=== PATIENT | female | born 1960 | race Caucasian/White ===

== ENCOUNTER → 2017-03-19 | Outpatient (CLI) | payer OTHER ==
[~2017-03-19] MED LIST: FISH OIL1 CAP PO; MAGNESIUM; VITAMIN C; VITAMIN D; VITAMIN E
--- NOTE | 2017-03-19 15:35 | RADIOLOGY IMAGING REPORT ---
FACILITY: [facility] - [place] PATIENT NAME: DARWIN RUBIO : [id number] MR: [id number] V: [id number] EXAM DATE: [id number] ORDERING PHYSICIAN: SHWETA GOLDMAN TECHNOLOGIST: Magaly Long PROCEDURE:BILATERAL DIGITAL SCREENING MAMMOGRAM WITH CAD ASSISTED INTERPRETATION & 3D TOMOSYNTHESIS COMPARISON:09/15/16 & priors back to 03/12/2013 INDICATIONS:SCREENING FINDINGS: Breasts have scattered fibroglandular parenchymal densities. There are no mammographic findings concerning for malignancy. There is no significant interval change. DIAGNOSTIC CATEGORY 1--NEGATIVE. RECOMMENDATIONS: ROUTINE MAMMOGRAM AND CLINICAL EVALUATION IN 1 YEAR IMPRESSION: BIRADS 1: Negative. Dictated by: Sebastián Menendez on 03/19/2017 at 13:38 Transcribed by: GRACE on 03/19/2017 at 15:13 Approved by: Sebastián Menendez on 03/19/2017 at 15:33 [facility]
== END ==
LOC: MAMO 00:31
PROVIDERS: ATTEND Nurse Practitioner Family
DX: Z12.31 Encounter for screening mammogram for malignant neoplasm of breast (principal)
CPT/HCPCS: 77063; 77067

== ENCOUNTER 2017-09-30 15:05 | Emergency (ER) | payer OTHER ==
--- NOTE | 2017-09-30 15:22 | ER Report ---
History and Physical Time Seen By MD: 15:17 HPI/ROS CHIEF COMPLAINT: LLQ abd pain HISTORY OF PRESENT ILLNESS: PT states that she was fine until 11:15 this morning. PT started with LLQ abdominal pain that was crampy and sharp. + nausea and vomited x2. Pt thought it could be gas so took a fleet enema and had a nl bm but still had pain. no blood in stool or urine. No dysuria. never had this pain before. No back pain. no chills or fever. REVIEW OF SYSTEMS: Constitutional: No fever, no chills. Eyes: No discharge. ENT: No sore throat. Cardiovascular: No chest pain, no palpitations. Respiratory: No cough, no shortness of breath. Gastrointestinal: + abdominal pain, +nausea, + vomiting. Genitourinary: No hematuria. Musculoskeletal: No back pain. Skin: No rashes. Neurological: No headache. Allergies: Coded Allergies: No Known Drug Allergies (Unverified , 04/27/11) Home Meds Reported Medications Insulin Lispro 100 Un/Ml Vial (HUMALOG 100 U/ML VIAL) 100 Unit/1 Ml Vial, 100 UNIT SQ, VIAL 09/30/17 Simvastatin (SIMVASTATIN) 20 Mg Tablet, 20 MG PO HS, TAB 09/30/17 Discontinued Reported Medications [Vitamin E] No Conflict Check 04/27/11 [place]-3 Fatty Acids (Fish Oil) 1 Cap Capsule, 1 CAP PO DAILY 04/27/11 [Magnesium] No Conflict Check 04/27/11 [Vitamin C] No Conflict Check 04/27/11 [Vitamin D] No Conflict Check 04/27/11 Past Medical/Surgical History Pmhx: DM PSHX: , gucci Reviewed Nurses Notes: Yes Old Medical Records Reviewed: Yes Hx Smoking: No Hx Alcohol Use: No Constitutional Vital Sign - Last 24 Hours 09/30/17 15:24 Temp 98.3 Pulse 73 Resp 17 B/P (MAP) 144/84 Pulse Ox 89 O2 Delivery Room Air Physical Exam General Appearance: The patient is alert, has no immediate need for airway protection and no signs of toxicity. Eyes: Pupils equal and round no pallor or injection, EOMI ENT: no pharyngeal erythema or exudates, Mucous membranes are moist Respiratory: There are no retractions, lungs are clear to auscultation. Cardiovascular: Regular rate and rhythm. pulses are equal and symmetrical Gastrointestinal: Abdomen is soft with LLQ tenderness, no masses, bowel sounds decreased, no guarding, no rigidity or rebound Neurological: Cranial nerves II-XII grossly intact, no sensory or motor loss Skin: Warm and dry, no rashes. Musculoskeletal: Neck is supple non tender, no vertebral tenderness Extremities are nontender, non swollen and have full range of motion. DIFFERENTIAL DIAGNOSIS: After history and physical exam differential diagnosis was considered for divertic, colitis, kidney stone, uti, psbo Medical Decision Making Data Points Result Diagram: 09/30/17 1540 09/30/17 1540 Laboratory Hematology Test 09/30/17 15:40 09/30/17 17:12 Red Blood Count 5.00 M/uL (4.17-5.56) Mean Corpuscular Volume 90.0 fL (80.0-96.0) Mean Corpuscular Hemoglobin 32.0 pg (26.0-33.0) Mean Corpuscular Hemoglobin Concent 35.6 g/dL (32.0-36.0) Red Cell Distribution Width 12.9 % (11.5-14.5) Mean Platelet Volume 9.7 fL (7.2-11.1) Neutrophils (%) (Auto) 75.1 % (39.4-72.5) Lymphocytes (%) (Auto) 18.8 % (17.6-49.6) Monocytes (%) (Auto) 5.0 % (4.1-12.4) Eosinophils (%) (Auto) 0.2 % (0.4-6.7) Basophils (%) (Auto) 0.9 % (0.3-1.4) Nucleated RBC Relative Count (auto) 0.1 /100WBC Neutrophils # (Auto) 6.3 K/uL (2.0-7.4) Lymphocytes # (Auto) 1.6 K/uL (1.3-3.6) Monocytes # (Auto) 0.4 K/uL (0.3-1.0) Eosinophils # (Auto) 0.0 K/uL (0.0-0.5) Basophils # (Auto) 0.1 K/uL (0.0-0.1) Nucleated RBC Absolute Count (auto) 0.01 K/uL Sodium Level 137 mmol/L (137-145) Potassium Level 3.4 mmol/L (3.5-5.0) Chloride Level 101 mmol/L (98-107) Carbon Dioxide Level 22 mmol/L (22-31) Blood Urea Nitrogen 18 mg/dl (7-18) Creatinine 0.80 mg/dl (0.52-1.04) Glomerular Filtration Rate Calc > 60.0 Random Glucose 164 mg/dl (75-110) Calcium Level 9.2 mg/dl (8.4-10.2) Total Bilirubin 0.5 mg/dl (0.2-1.3) Aspartate Amino Transf (AST/SGOT) 27 U/L (0-35) Alanine Aminotransferase (ALT/SGPT) 30 U/L (0-56) Alkaline Phosphatase 48 U/L (0-126) Total Protein 7.3 g/dl (6.3-8.2) Albumin 4.2 g/dl (3.5-5.0) Lipase 64 U/L (23-300) Urine Color Yellow Urine Clarity Cloudy Urine pH 8.0 pH (4.8-9.5) Urine Specific [place] 1.035 Urine Protein Negative mg/dL (NEGATIVE) Urine Glucose (UA) 50 mg/dL (NEGATIVE) Urine Ketones 80 mg/dL (NEGATIVE) Urine Blood Negative (NEGATIVE) Urine Nitrite Negative (NEGATIVE) Urine Bilirubin Negative (NEGATIVE) Urine Urobilinogen Negative mg/dL (0.2-1.9) Urine Leukocyte Esterase Negative (NEGATIVE) Urine RBC 2 /HPF (0-2/HPF) Urine WBC None /HPF (0-5/HPF) Urine Squamous Epithelial Cells Many /LPF (</=FEW) Urine Bacteria Moderate /HPF (NONE-FEW) Urine Mucus None /HPF (NONE-FEW) Chemistry Test 09/30/17 15:40 09/30/17 17:12 White Blood Count 8.3 k/uL (4.5-11.0) Red Blood Count 5.00 M/uL (4.17-5.56) Hemoglobin 16.0 g/dL (12.0-16.0) Hematocrit 45.0 % (34.0-47.0) Mean Corpuscular Volume 90.0 fL (80.0-96.0) Mean Corpuscular Hemoglobin 32.0 pg (26.0-33.0) Mean Corpuscular Hemoglobin Concent 35.6 g/dL (32.0-36.0) Red Cell Distribution Width 12.9 % (11.5-14.5) Platelet Count 253 K/uL (150-450) Mean Platelet Volume 9.7 fL (7.2-11.1) Neutrophils (%) (Auto) 75.1 % (39.4-72.5) Lymphocytes (%) (Auto) 18.8 % (17.6-49.6) Monocytes (%) (Auto) 5.0 % (4.1-12.4) Eosinophils (%) (Auto) 0.2 % (0.4-6.7) Basophils (%) (Auto) 0.9 % (0.3-1.4) Nucleated RBC Relative Count (auto) 0.1 /100WBC Neutrophils # (Auto) 6.3 K/uL (2.0-7.4) Lymphocytes # (Auto) 1.6 K/uL (1.3-3.6) Monocytes # (Auto) 0.4 K/uL (0.3-1.0) Eosinophils # (Auto) 0.0 K/uL (0.0-0.5) Basophils # (Auto) 0.1 K/uL (0.0-0.1) Nucleated RBC Absolute Count (auto) 0.01 K/uL Glomerular Filtration Rate Calc > 60.0 Calcium Level 9.2 mg/dl (8.4-10.2) Total Bilirubin 0.5 mg/dl (0.2-1.3) Aspartate Amino Transf (AST/SGOT) 27 U/L (0-35) Alanine Aminotransferase (ALT/SGPT) 30 U/L (0-56) Alkaline Phosphatase 48 U/L (0-126) Total Protein 7.3 g/dl (6.3-8.2) Albumin 4.2 g/dl (3.5-5.0) Lipase 64 U/L (23-300) Urine Color Yellow Urine Clarity Cloudy Urine pH 8.0 pH (4.8-9.5) Urine Specific [place] 1.035 Urine Protein Negative mg/dL (NEGATIVE) Urine Glucose (UA) 50 mg/dL (NEGATIVE) Urine Ketones 80 mg/dL (NEGATIVE) Urine Blood Negative (NEGATIVE) Urine Nitrite Negative (NEGATIVE) Urine Bilirubin Negative (NEGATIVE) Urine Urobilinogen Negative mg/dL (0.2-1.9) Urine Leukocyte Esterase Negative (NEGATIVE) Urine RBC 2 /HPF (0-2/HPF) Urine WBC None /HPF (0-5/HPF) Urine Squamous Epithelial Cells Many /LPF (</=FEW) Urine Bacteria Moderate /HPF (NONE-FEW) Urine Mucus None /HPF (NONE-FEW) Urinalysis Test 09/30/17 17:12 Urine Color Yellow Urine Clarity Cloudy Urine pH 8.0 pH (4.8-9.5) Urine Specific [place] 1.035 Urine Protein Negative mg/dL (NEGATIVE) Urine Glucose (UA) 50 mg/dL (NEGATIVE) Urine Ketones 80 mg/dL (NEGATIVE) Urine Blood Negative (NEGATIVE) Urine Nitrite Negative (NEGATIVE) Urine Bilirubin Negative (NEGATIVE) Urine Urobilinogen Negative mg/dL (0.2-1.9) Urine Leukocyte Esterase Negative (NEGATIVE) Urine RBC 2 /HPF (0-2/HPF) Urine WBC None /HPF (0-5/HPF) Urine Squamous Epithelial Cells Many /LPF (</=FEW) Urine Bacteria Moderate /HPF (NONE-FEW) Urine Mucus None /HPF (NONE-FEW) ED Course/Re-evaluation Clinical Indication for ER IV: IV Access ED Course IV, xray. PT still with pain dispite fentanyl will remedicate and obtain CT 09/30/2017 5:57:[address] Azar, surgery certified nurse practitioner. Reviweed pts CT. Pt currently pain free after two dosages of narcotics. Feels unlikely ischemic colitis due to pts CT was performed with IV contrast and they did not note any wall thickening or signs of ischemia. Feels pt needs close follow up. Spoke with pt and she feels comfortable going home. Will return if symptoms worsen or fever develops. Decision to Disposition Date: Sep 30, 2017 Decision to Disposition Time: 17:54 Depart Departure Latest Vital Signs Vital Signs Date Time Temp Pulse Resp B/P (MAP) Pulse Ox O2 Delivery O2 Flow Rate FiO2 09/30/17 15:24 98.3 73 17 144/84 89 Room Air Impression: Primary Impression: Enteritis Condition: Improved Disposition: HOME OR SELF-CARE Referrals: SHWETA GOLDMANP (PCP) 5 Days New Scripts Ondansetron (ZOFRAN ODT) 4 Mg Tab.rapdis 4 MG PO Q6-8H PRN for NAUSEA/VOMITING, #10 TAB.MIA Prov: MARIE TOBIN DO 09/30/17 Dicyclomine Hcl (DICYCLOMINE HCL) 20 Mg Tablet 20 MG PO Q6-8H PRN for CRAMPING, #21 TAB Prov: MARIE TOBIN DO 09/30/17 Patient Instructions: Enteritis (GEN) Additional Instructions: Your blood work today was stable Your cat scan today showed signs of enteritis which can be viral. Bentyl 20mg every 6-8 hours as needed for cramping. zofran one every 6 hours as needed for nausea. If symptoms worsen (fever, or increased pain) then please return to the emergency department. MARIE TOBIN DO Sep 30, 2017 15:22
[2017-09-30] MEDS ORDERED: fentaNYL CITR 100 MCG/2 ML AMP IVP ONE ×2 (15:30→16:25)
[2017-09-30] MEDS ORDERED: ONDANSETRON 4 MG/2 ML VIAL IVP ONE (15:30)
[2017-09-30 15:58] LABS: PLATELET COUNT, AUTOMATED 253 K/uL (150-450)
[2017-09-30] MEDS ORDERED: NS(*) 0.9% 1000 ML BAG 1,000 ML IV ONE (16:25)
[2017-09-30] MEDS ORDERED: PROMETHAZINE 25 MG/ML 1 ML AMP IVP ONE (16:40)
--- NOTE | 2017-09-30 16:41 | RADIOLOGY IMAGING REPORT ---
FACILITY: [facility] - [place] PATIENT NAME: Ritu Godoy : 1960 MR: [id number] V: [id number] EXAM DATE: ORDERING PHYSICIAN: MARIE TOBIN TECHNOLOGIST: Location: [facility] [place] Patient: Ritu Godoy : 1960 Visit/Account:[id number] Date of Sevice: 09/30/2017 Study: ACUTE ABDOMEN SERIES 3 VIEW Indication: Abdominal pain Comparison study: None available Findings: Upright chest and upright and supine views of the abdomen demonstrates no evidence of pneum operitoneum. There is no evidence of small bowel obstruction. There is a large amount of stool presen t within the colon. The chest is unremarkable in appearance. There is no significant bony abnormality identified. Incidental note is made that the patient is status post cholecystectomy. IMPRESSION: No significant abnormality identified. Specifically, there is no evidence of small bowel obstruction or pneumoperitoneum. Report Dictated By: Abdirashid Sousa at 09/30/2017 4:35 PM Report E-Signed By: Abdirashid Sousa at 09/30/2017 4:36 PM WSN:[id number]
[2017-09-30] MEDS ORDERED: IOPAMIDOL 76% 75 ML INFUS BTL 75 ML ONE (16:49)
[2017-09-30] MEDS ORDERED: SIMV-49 PO (16:58)
[2017-09-30] MEDS ORDERED: INSU100V24 SQ (16:58)
--- NOTE | 2017-09-30 17:15 | RADIOLOGY IMAGING REPORT ---
FACILITY: [facility] PATIENT NAME: Ritu Godoy : 1960 MR: [id number] V: [id number] EXAM DATE: ORDERING PHYSICIAN: MARIE TOBIN TECHNOLOGIST: Location: [facility] Patient: Ritu Godoy : 1960 Visit/Account:[id number] Date of Sevice: 09/30/2017 EXAMINATION: CT abdomen and pelvis with IV contrast HISTORY: Abdominal pain. TECHNIQUE: Axial CT images of the abdomen and pelvis were obtained with IV contrast, with coronal a nd sagittal 2D reconstructed images. One of the following dose optimization techniques was utilized in the performance of this exam: Autom ated exposure control; adjustment of the mA and/or kV according to the patient's size; or use of an i terative reconstruction technique. Specific details can be referenced in the facility's radiology C T exam operational policy. Contrast: 75 mL of IV Isovue-370. COMPARISON: None. FINDINGS: Liver: Fatty infiltration of the liver. Gallbladder and bile ducts: Cholecystectomy. Dilatation of the central bile ducts may relate to the postcholecystectomy state. Spleen: Negative. Pancreas: Negative. Adrenal glands: Negative. Kidneys: No urinary calculi or hydronephrosis. The kidneys enhance normally. Subcentimeter hypodensi ties in both kidneys likely represent small cysts. There is a localized cortical scarring along the u pper pole of the left kidney. Bowel and peritoneum: The small bowel and colon are normal in caliber. No bowel obstruction. There i s some increased fluid present within nondilated distal small bowel loops which is nonspecific but co uld be compatible with a generalized enteritis. Normal appendix. No free fluid or free intraperitonea l air. Small hiatal hernia. Pelvic structures: Lobular uterus with likely small fibroids. No large adnexal cyst. Lymph node assessment: Negative. Vessels: Mild vascular calcifications. Normal caliber abdominal aorta. Musculoskeletal: No acute osseous findings. Degenerative changes along the lower lumbar facet joint s. Body wall: Negative. Lung bases: Negative. IMPRESSION: 1. There is some increased fluid present within nondilated small bowel loops in the lower abdomen and pelvis. Appearance is nonspecific but may be compatible with a generalized enteritis. 2. No other acute intra-abdominal findings. 3. Normal appendix. 4. Prior cholecystectomy. 5. Small hiatal hernia. 6. Uterine fibroids. Report Dictated By: Zoltan Judge MD at 09/30/2017 5:05 PM Report E-Signed By: Zoltan Judge MD at 09/30/2017 5:11 PM WSN:[id number]
[2017-09-30] MEDS ORDERED: DICYCLOMINE HCL 10 MG CAP PO ONE ×2 (17:50→17:55)
[2017-09-30 18:00] VITALS: BP 147/82
[2017-09-30] MEDS ORDERED: ONDA4TAB PO (18:04)
[2017-09-30] MEDS ORDERED: DICY20TA70 PO (18:04)
== END 2017-09-30 18:19 | disposition home or self-care (01) ==
LOC: ER 15:27
DX: K52.9 Noninfective gastroenteritis and colitis, unspecified (principal)
CPT/HCPCS: 74022; 74177; 81001; 83690; 85025; 96374; 96375; 96376; 99284; J2405; J2550; J3010; J7030; Q9967; 82040; 82247; 82310; 82374; 82435; 82565; 82947; 84075; 84132; 84155; 84295; 84450; 84460; 84520

== ENCOUNTER → 2018-03-21 | Outpatient (CLI) | payer OTHER ==
[~2018-03-21] MED LIST changes: +DICY20TA70 PO; +INSU100V24 SQ; +ONDA4TAB PO; +SIMV-49 PO
--- NOTE | 2018-03-21 16:10 | RADIOLOGY IMAGING REPORT ---
FACILITY: [facility] - [place] PATIENT NAME: DARWIN RUBIO : [id number] MR: [id number] V: [id number] EXAM DATE: [id number] ORDERING PHYSICIAN: SHWETA GOLDMAN TECHNOLOGIST: Magaly Long PROCEDURE:BILATERAL DIGITAL SCREENING MAMMOGRAM WITH CAD ASSISTED INTERPRETATION & 3D TOMOSYNTHESIS COMPARISON:Prior mammograms 03/19/17, 02/26/16. INDICATIONS:Screening FINDINGS: There is scattered fibroglandular tissue. No suspicious mass, microcalcification or architectural distortion. No change compared to priors. DIAGNOSTIC CATEGORY 1--NEGATIVE. RECOMMENDATIONS: ROUTINE MAMMOGRAM AND CLINICAL EVALUATION. IMPRESSION: BIRADS 1: Negative. Dictated by: Lee Montgomery on 03/21/2018 at 13:29 Transcribed by: MIGUEL ANGEL on 03/21/2018 at 13:55 Approved by: Lee Montgomery on 03/21/2018 at 16:09 [facility]
== END ==
LOC: MAMO 02:32
PROVIDERS: ATTEND Nurse Practitioner Family
DX: Z12.31 Encounter for screening mammogram for malignant neoplasm of breast (principal)
CPT/HCPCS: 77063; 77067